=== PATIENT | female | born 1945 | race Caucasian/White ===

== ENCOUNTER → 2016-08-22 | Outpatient (CLI) | payer MEDICARE, BC ==
[~2016-08-22] MED LIST: DIGE1TAB PO; GLUC1TAB27 PO; LUTE1CAP3 PO; MULT-658 PO; UBID1CAP24 PO; VITA150T PO; VITA1CAP14 PO
[2016-08-22 11:19] LABS: ASPARTATE AMINO TRANSFERASE 18 U/L (15-37); BLOOD UREA NITROGEN 17 mg/dL (7-18)
== END | disposition home or self-care (01) ==
LOC: STAR 10:14
PROVIDERS: ATTEND Surgery
DX: Z01.818 Encounter for other preprocedural examination (principal); R94.31 Abnormal electrocardiogram [ECG] [EKG]; K82.8 Other specified diseases of gallbladder; M81.0 Age-related osteoporosis without current pathological fracture
CPT/HCPCS: 36415; 80053; 85025; 93005

== ENCOUNTER 2016-08-29 07:29 | Day surgery (SDC) | payer MEDICARE, BC ==
[~2016-08-29] VITALS: Ht 157.5 cm; Wt 52.0 kg
[~2016-08-29 07:29] MED LIST changes: +BUPIVACAINE/PF-EPI 0.5% 1:200K ONE
[2016-08-29] MEDS ORDERED: LACTATED RINGERS 1,000 ML IV SCH (08:20)
[2016-08-29 08:22] VITALS: BP 130/79
[2016-08-29] MEDS ORDERED: LIDOCAINE 1%, 2ML SQ PRN (08:30)
[2016-08-29] MEDS ORDERED: FENTANYL PF 250 MCG/5ML ONE (08:52)
[2016-08-29] MEDS ORDERED: MIDAZOLAM 1 MG/ML, 2ML ONE (08:52)
[2016-08-29] MEDS ORDERED: PROPOFOL 10 MG/ML, 20ML ONE (09:25)
[2016-08-29] MEDS ORDERED: CEFAZOLIN 1,000 MG ONE (09:25)
[2016-08-29] MEDS ORDERED: SUCCINYLCHOLINE 20 MG/ML, 10ML ONE (09:25)
[2016-08-29] MEDS ORDERED: ONDANSETRON 2MG/ML, 2ML ONE (09:25)
[2016-08-29] MEDS ORDERED: DEXAMETHASONE 4 MG/ML, 1ML ONE (09:25)
[2016-08-29] MEDS ORDERED: OXYcodone 5 MG/5 ML ORAL.SOL UDC PO PRN (10:00)
[2016-08-29] MEDS ORDERED: HYDROmorphone 1 MG/ML, 1ML IV PRN (10:00)
[2016-08-29] MEDS ORDERED: ACETAMINOPHEN 325 MG TABLET PO PRN (10:00)
[2016-08-29] MEDS ORDERED: PROMETHAZINE 25 MG/ML, 1ML IV PRN (10:00)
[2016-08-29] MEDS ORDERED: ONDANSETRON 2MG/ML, 2ML IVPush PRN (10:00)
[2016-08-29] MEDS ORDERED: MIDAZOLAM 1 MG/ML, 2ML IV PRN (10:00)
[2016-08-29] MEDS ORDERED: ACETAMINOPHEN 650 MG/20.3 ML UDC ONE (10:36)
[2016-08-29] MEDS ORDERED: OXYcodone 5 MG/5 ML ORAL.SOL UDC ONE (10:37)
[2016-08-29] MEDS ORDERED: FENTANYL PF 100 MCG/2ML ONE (10:37)
[2016-08-29] MEDS: FENTANYL PF 100 MCG/2ML IV PRN ×2 (10:41→11:03)
[2016-08-29] MEDS ORDERED: BUPIVACAINE/PF-EPI 0.5% 1:200K ONE (15:52)
== END 2016-08-29 13:50 ==
LOC: OUT 07:29
PROVIDERS: ATTEND Surgery
DX: K81.1 Chronic cholecystitis (principal); M81.0 Age-related osteoporosis without current pathological fracture
CPT/HCPCS: 47562; 88304; C1760; J0330; J0690; J1100; J2250; J2405; J2704; J3010

== ENCOUNTER → 2017-07-25 | Outpatient (CLI) | payer MEDICARE, BC ==
[~2017-07-25] MED LIST changes: -BUPIVACAINE/PF-EPI 0.5% 1:200K ONE; -UBID1CAP24 PO; +UBID1CAP43 PO
== END | disposition home or self-care (01) ==
LOC: LAB 07:01
PROVIDERS: ATTEND Family Medicine Sports Medicine
DX: M81.0 Age-related osteoporosis without current pathological fracture (principal)
CPT/HCPCS: 36415; 82330; 83970

== ENCOUNTER → 2018-08-07 | Outpatient (CLI) | payer MEDICARE, BC ==
[2018-08-07 07:34] LABS: ANION GAP 5 mmol/L (5-15); CALCIUM 9.3 mg/dL (8.5-10.1); CHLORIDE 109 mmol/L (98-107)
[2018-08-07 07:35] LABS: BASOPHILS # (AUTO) 0.09 x10^3/uL (0-0.1); BASOPHILS % (AUTO) 2 % (0-1); EOSINOPHILS # (AUTO) 0.32 x10^3/uL (0-0.4); EOSINOPHILS % (AUTO) 6 % (1-7); LYMPHOCYTES # (AUTO) 1.74 x10^3/uL (1-3.4); LYMPHOCYTES % (AUTO) 30 % (22-44); MD NO; MEAN CORPUSCULAR HEMOGLOBIN 29.3 pg (27.0-34.8); MEAN CORPUSCULAR HGB CONC 32.7 g/dL (32.4-35.8); MEAN CORPUSCULAR VOLUME 89.8 fL (80-100); MEAN PLATELET VOLUME 7.6 fL (7.4-10.4); MONOCYTES # (AUTO) 0.52 x10^3/uL (0.2-0.8); MONOCYTES % (AUTO) 9 % (2-9); NEUTROPHILS % (AUTO) 54 % (42-75); PLATELET COUNT 336 x10^3/uL (130-400); RED BLOOD COUNT 4.68 x10^6/uL (3.82-5.3); RED CELL DISTRIBUTION WIDTH 14.3 % (9.6-15.2)
[2018-08-07 07:58] LABS: ALANINE AMINOTRANSFERASE 24 U/L (12-78); ALKALINE PHOSPHATASE 64 U/L (45-117); BILIRUBIN,TOTAL 0.5 mg/dL (0.2-1.0); CHOL/HDL RATIO 2.7; CHOLESTEROL, TOTAL 238 mg/dL (140-239); CREATININE 0.84 mg/dL (0.55-1.02); HDL CHOLESTEROL (DIRECT) 88 mg/dL (40-60); TOTAL PROTEIN 7.1 g/dL (6.4-8.2); TRIGLYCERIDES 84 mg/dL (50-200); VLDL CHOLESTEROL 17 mg/dL (0-25)
[2018-08-07 07:59] LABS: FREE T4 (FREE THYROXINE) 1.04 ng/dL (0.76-1.46); HDL CHOL % 37 % (28-40); LDL CHOLESTEROL,CALCULATED 133 mg/dL (54-169); LDL/HDL RATIO 1.5 (0.5-3.0)
[2018-08-07 08:52] LABS: HEMOGLOBIN A1C 5.3 % (4.2-6.3)
== END | disposition home or self-care (01) ==
LOC: LAB 07:08
PROVIDERS: ATTEND Family Medicine
DX: E78.5 Hyperlipidemia, unspecified (principal); D51.3 Other dietary vitamin B12 deficiency anemia; E55.9 Vitamin D deficiency, unspecified; F33.0 Major depressive disorder, recurrent, mild; R73.9 Hyperglycemia, unspecified
CPT/HCPCS: 36415; 80053; 80061; 82306; 82607; 83036; 84439; 84443; 85025